=== PATIENT | male | born 1990 | race African-American/Black ===

== ENCOUNTER 2016-06-03 10:40 | Outpatient (CLI) | payer OTHER | END 2016-06-03 10:41 | disposition home or self-care (01) | DX: G47.33 Obstructive sleep apnea (adult) (pediatric) (principal) ==

== ENCOUNTER 2016-06-13 14:53 | Outpatient (CLI) | payer OTHER | END 2016-06-13 14:54 | disposition home or self-care (01) | DX: M51.26 Other intervertebral disc displacement, lumbar region (principal); M51.27 Other intervertebral disc displacement, lumbosacral region ==

== ENCOUNTER 2016-07-07 19:21 | Outpatient (CLI) | payer OTHER | END 2016-07-07 19:22 | disposition home or self-care (01) | DX: G47.9 Sleep disorder, unspecified (principal) ==

== ENCOUNTER 2016-07-18 10:52 | Outpatient (CLI) | payer OTHER | END 2016-07-18 10:53 | disposition home or self-care (01) | DX: R06.83 Snoring (principal); G47.10 Hypersomnia, unspecified ==

== ENCOUNTER 2017-09-10 12:53 | Outpatient (CLI) | payer OTHER | END 2017-09-10 12:54 | disposition home or self-care (01) | LOC: DI 12:53 | PROVIDERS: ATTEND General Practice | DX: I51.7 Cardiomegaly (principal) | CPT/HCPCS: 93306 ==

== ENCOUNTER 2017-10-13 15:39 | Outpatient (CLI) | payer OTHER | END 2017-10-13 15:40 | disposition home or self-care (01) | LOC: SC 15:39 | PROVIDERS: ATTEND Nurse Practitioner Family | DX: G47.10 Hypersomnia, unspecified (principal); R06.83 Snoring; E66.9 Obesity, unspecified; Z68.35 Body mass index [BMI] 35.0-35.9, adult; R20.0 Anesthesia of skin | CPT/HCPCS: 99212; 99214 ==

== ENCOUNTER 2017-12-31 20:09 | Outpatient (CLI) | payer OTHER | END 2017-12-31 20:10 | disposition home or self-care (01) | LOC: SC 20:09 | PROVIDERS: ATTEND Internal Medicine Pulmonary Disease | DX: G47.33 Obstructive sleep apnea (adult) (pediatric) (principal); G47.61 Periodic limb movement disorder | CPT/HCPCS: 95810 ==

== ENCOUNTER 2018-02-10 09:18 | Outpatient (CLI) | payer OTHER | END 2018-02-10 09:19 | disposition home or self-care (01) | LOC: SC 09:18 | PROVIDERS: ATTEND Nurse Practitioner Family | DX: G47.33 Obstructive sleep apnea (adult) (pediatric) (principal); G47.61 Periodic limb movement disorder | CPT/HCPCS: 99212; 99214 ==

== ENCOUNTER 2018-04-03 14:41 | Emergency (ER) | payer OTHER ==
[2018-04-03 15:08] VITALS: BP 146/79
[2018-04-03] MEDS: cephALEXin 250 MG CAPSULE PO STA (16:49)
--- NOTE | 2018-04-03 16:59 | XRAY Report ---
Reason: injury right index finger at PIP joint Procedure Date: 04/03/2018 Accession Number: [id number] / [id number] Procedure: XR - Finger(s) RT CPT Code: FULL RESULT: EXAM: RIGHT SECOND DIGIT RADIOGRAPHY EXAM DATE: 04/03/2018 04:41 PM. CLINICAL HISTORY: Injury right index finger at PIP joint. COMPARISON: None. TECHNIQUE: 3 views. FINDINGS: Bones: Normal. No fracture or bone lesion. Joints: Normal. No subluxations. Soft Tissues: There is soft tissue swelling at the dorsal PIP joint. IMPRESSION: Soft tissue swelling without fracture or subluxation. RADIA
--- NOTE | 2018-04-03 17:04 | ED Physician Documentation ---
PD HPI UPPER EXT INJURY - Stated complaint Stated Complaint: R POINTER FINGER INJ - Chief complaint Chief Complaint: Wound - History obtained from History obtained from: Patient - History of Present Illness Location: Right, Finger (index) Where injury occurred: Home Timing - onset: How many days ago (5) Worsened by: Moving, Palpating Associated symptoms: Swelling. No: Weakness, Numbness Similar symptoms before: Has not had sx before - Additonal information Additional information: The patient is a 27-year-old male who banged the knuckle on his right index finger 5 days ago when changing spark plugs on his car and the wrench slipped. He has noticed increased swelling at the wound area since that time, and it is become more painful. He is concerned about the possibility of infection. He is right-hand dominant. In a second, unrelated complaint, he complains of sore throat that started today, along with a low-grade fever. He denies headache, cough, or shortness of breath. Review of Systems Constitutional: reports: Fever (low grade) Nose: denies: Congestion Throat: reports: Sore throat Cardiac: denies: Chest pain / pressure Respiratory: denies: Dyspnea, Cough GI: denies: Abdominal Pain, Nausea, Vomiting Skin: denies: Rash Musculoskeletal: reports: Extremity pain (Index finger right hand.). denies: Neck pain Neurologic: denies: Focal weakness, Numbness, Headache PD PAST MEDICAL HISTORY - Past Medical History Endocrine/Autoimmune: None - Present Medications Home Medications: Ambulatory Orders Medication Instructions Recorded Confirmed cephALEXin [Cephalexin] 500 mg PO TID #20 tablet 04/03/18 - Allergies Allergies/Adverse Reactions: Allergies Allergy/AdvReac Type Severity Reaction Status Date / Time No Known Drug Allergies Allergy Verified 04/03/18 15:07 - Social History Does the pt smoke?: No PD ED PE NORMAL - Vitals Vital signs reviewed: Yes (Borderline hypertension; low grade fever) - General General: Alert and oriented X 3, Well developed/nourished - HEENT HEENT: Atraumatic, Other (Oropharynx is mildly erythematous, without exudates.) - Neck Neck: Supple, no meningeal sign, No adenopathy - Cardiac Cardiac: RRR - Respiratory Respiratory: No respiratory distress, Clear bilaterally - Derm Derm: No rash - Extremities Extremities: Other (There is an abrasion over the extensor aspect of the PIP joint on the right index finger swelling and tenderness to palpation. There is no lymphangitic streaking and no tenderness to palpation along the extensor tendon. Distal neurovascular is intact.) - Neuro Neuro: Alert and oriented X 3, No motor deficit, No sensory deficit Results - Vitals Vitals: Vital Signs - 24 hr 04/03/18 15:06 Temperature 38 C H Heart Rate 90 Respiratory 16 Rate Blood Pressure 146/79 H O2 Saturation 100 Oxygen O2 Source Room air - Labs Labs: Laboratory Tests 04/03/18 15:10 Group A Strep Rapid Negative - Rads (name of study) Right index finger Radiology: Prelim report reviewed, EMP read contemporaneously, See rad report (Soft tissue swelling at the dorsal PIP joint, without fracture or subluxation.) PD MEDICAL DECISION MAKING - ED course Complexity details: reviewed results, re-evaluated patient, considered differential, d/w patient ED course: The patient's presentation is most consistent with superficial cellulitis of the right index finger following a wound with abrasion. X-ray reveals no evidence of fracture or foreign body. His upper respiratory symptoms are most consistent with viral upper respiratory infection. Strep screen of his throat is negative, and influenza swab of his nasal pharynx is negative. Treatment in the emergency department included administration of cephalexin 500 mg orally. He is being discharged with prescription for cephalexin. I discussed with him the expected course of illness, antibiotic treatment and outpatient follow-up, as well as potentially worrisome signs or symptoms that should prompt reevaluation in the emergency department. Departure - Departure Disposition: 01 Home, Self Care Clinical Impression: Wound infection, Viral URI Finger injury Qualifiers: Encounter type: initial encounter Laterality: right Qualified Code(s): S69.91XA - Unspecified injury of right wrist, hand and finger(s), initial encounter Condition: Stable Instructions: ED Infec Skin Cellulitis Follow-Up: [facility] [Provider Group] Prescriptions: cephALEXin [Cephalexin] 500 mg PO TID #20 tablet Comments: Keep your right hand elevated as much the time as possible. Take cephalexin 3 times daily as prescribed. You can use ibuprofen, up to 800 mg 3 times daily for its anti-inflammatory effect. Let pain be your guide to activity level. Follow-up with your primary physician within 1-2 weeks. Call to schedule appointment. Return to the emergency department if increasing redness, swelling, pain, or otherwise worsening symptoms. Discharge Date/Time: 04/03/18 17:24
== END 2018-04-03 17:24 | disposition home or self-care (01) ==
LOC: ED 14:41
DX: S60.410A Abrasion of right index finger, initial encounter (principal); J06.9 Acute upper respiratory infection, unspecified; W22.8XXA Striking against or struck by other objects, initial encounter; Y93.89 Activity, other specified; Y92.009 Unspecified place in unspecified non-institutional (private) residence as the place of occurrence of the external cause
CPT/HCPCS: 73140; 87070; 87430; 99283; A9270

== ENCOUNTER 2018-06-24 11:11 | Outpatient (CLI) | payer OTHER | END 2018-06-24 11:12 | disposition home or self-care (01) | LOC: SC 11:11 | PROVIDERS: ATTEND Nurse Practitioner Family | DX: G47.33 Obstructive sleep apnea (adult) (pediatric) (principal) | CPT/HCPCS: 99212; 99214 ==

== ENCOUNTER 2018-07-18 08:48 | Outpatient (CLI) | payer OTHER ==
[2018-07-18] MEDS ORDERED: GADOBUTROL 7.5 MMOL/7.5 ML VIAL ONE (09:56)
[2018-07-18] MEDS ORDERED: GADOBUTROL 7.5 MMOL/7.5 ML VIAL IVP ONE (10:14)
--- NOTE | 2018-07-20 04:50 | MRI Report ---
Reason: OTHER INTERVERTEBRAL DISC DEGENERATION, LUMBAR REG Procedure Date: 07/18/2018 Accession Number: [id number] / [id number] Procedure: MRI - Lumbar Spine W/WO CPT Code: FULL RESULT: EXAM: MRI LUMBAR SPINE WITHOUT AND WITH CONTRAST EXAM DATE: 07/18/2018 10:22 AM. CLINICAL HISTORY: Low back pain, bilateral leg pain. COMPARISONS: LUMBAR SPINE W/O 06/13/2016 3:00 PM. TECHNIQUE: Multiplanar, multisequence T1-weighted and fluid-sensitive sequences of the lumbar spine from T12 to S1 before and after administration of intravenous contrast. Other: None. IV contrast: 13 mL of Gadavist. FINDINGS: Neurologic Structures: The conus terminates at L1. The conus medullaris and cauda equina are unremarkable. Alignment: There is no spondylolisthesis. Bone Marrow: Five [id number] lumbar vertebral bodies are assumed. No gross fractures or bone lesions. No bone marrow replacement or abnormal enhancement. Disk Levels/Facets: T12-L1: Unremarkable. L1-L2: Unremarkable. L2-L3: Unremarkable. L3-L4: Unremarkable. L4-L5: A central disk bulge and herniation have partially retracted compared to the prior exam. Spinal canal stenosis appears decreased. There is mild left foraminal narrowing due to a persistent foraminal protrusion. The right foramen is patent. L5-S1: A right paracentral protrusion and annular fissure have also retracted. It no longer abuts the descending right S1 nerve root. Disk height loss results in mild bilateral foraminal narrowing. Spinal Canal: No enhancing masses within the spinal canal. No epidural abscess. Musculature: Normal. No edema, abnormal enhancement, or fatty atrophy. Other: The visualized retroperitoneum is unremarkable. IMPRESSION: 1. Normal conus medullaris and cauda equina. 2. No abnormal enhancement to suggest lumbar spinal infection or tumor. 3. Interval retraction of the protrusions at L4-L5 and L5-S1 compared to the lumbar spine MRI from 06/13/2016. 4. No new or worsening disk bulge or herniation. 5. No worsening spinal canal or foraminal stenosis is seen. Comment: The following findings are so common in adults without low back pain that while we report their presence, they must be interpreted with caution and in the context of the clinical situation. (Reference Monroek et al, Spine 2001) Prevalence of findings in patients without low back pain: Disk degeneration (any evidence): 92% Disk desiccation/T2 signal loss: 83% Disk height loss: 56% Disk bulge: 64% Disk protrusion: 32% Annular tear/high intensity zone: 38% RADIA
== END 2018-07-18 08:49 | disposition home or self-care (01) ==
LOC: DI 08:48
PROVIDERS: ATTEND Family Medicine
DX: M51.37 Other intervertebral disc degeneration, lumbosacral region (principal); M51.26 Other intervertebral disc displacement, lumbar region; M51.36 Other intervertebral disc degeneration, lumbar region; M48.061 Spinal stenosis, lumbar region without neurogenic claudication; M48.07 Spinal stenosis, lumbosacral region; M51.27 Other intervertebral disc displacement, lumbosacral region
CPT/HCPCS: 72158

== ENCOUNTER 2018-07-18 22:05 | Emergency (ER) | payer OTHER ==
[2018-07-18 22:12] VITALS: BP 145/68
[2018-07-18] MEDS ORDERED: CHERRY SYRUP 10 ML UDC PO ONE (22:33)
[2018-07-18] MEDS ORDERED: DEXAMETHASONE 10 MG/ML VIAL PO STA (22:33)
--- NOTE | 2018-07-18 22:41 | ED Physician Documentation ---
PD HPI HEENT - Stated complaint Stated Complaint: SORE THROAT - Chief complaint Chief Complaint: Heent - History obtained from History obtained from: Patient, Family - History of Present Illness Timing - onset: How many days ago (4) Timing - duration: Days (4) Timing - details: Gradual onset, Still present Location: Right ear, Left ear, Throat Improves: Medication Worsens: Swalllowing Associated symptoms: Fever, Congestion, Rhinorrhea, Swollen nodes, Headache, Cough Similar symptoms before: Diagnosis (strep) Recently seen: Not recently seen Review of Systems Constitutional: denies: Fever Eyes: denies: Decreased vision Ears: reports: Loss of hearing, Ear pain Nose: reports: Rhinorrhea / runny nose, Congestion Throat: reports: Sore throat Cardiac: denies: Chest pain / pressure, Palpitations Respiratory: reports: Cough. denies: Dyspnea GI: denies: Vomiting PD PAST MEDICAL HISTORY - Past Medical History Endocrine/Autoimmune: None - Present Medications Home Medications: Ambulatory Orders Medication Instructions Recorded Confirmed Amox/Clav 875/125 [Augmentin] 1 each PO Q12H #20 tablet 07/19/18 - Allergies Allergies/Adverse Reactions: Allergies Allergy/AdvReac Type Severity Reaction Status Date / Time No Known Drug Allergies Allergy Verified 07/18/18 22:11 - Social History Does the pt smoke?: No Smoking Status: Never smoker PD ED PE NORMAL - Vitals Vital signs reviewed: Yes (hypertensive ) - General General: Alert and oriented X 3, No acute distress, Well developed/nourished - HEENT HEENT: Atraumatic, PERRL, EOMI, Other (both TM's are occluded with cerumen and after this is removed there is obvious inflamation to both TM's with distortion of the landmarks. The pharynx is with swelling and erythema ) - Neck Neck: Supple, no meningeal sign, No bony TTP - Cardiac Cardiac: RRR, No murmur - Respiratory Respiratory: No respiratory distress, Clear bilaterally - Abdomen Abdomen: Soft, Non tender - Back Back: No CVA TTP, No spinal TTP - Derm Derm: Normal color, Warm and dry, No rash - Extremities Extremities: No deformity, No edema - Neuro Neuro: Alert and oriented X 3, underwriter solicitation director 2-12 intact, No motor deficit, No sensory deficit, Normal speech Eye Opening: Spontaneous Motor: Obeys Commands Verbal: Oriented GCS Score: 15 - Psych Psych: Normal mood, Normal affect Results - Vitals Vitals: Vital Signs - 24 hr 07/18/18 22:08 Temperature 37.2 C Heart Rate 98 Respiratory 18 Rate Blood Pressure 145/68 H O2 Saturation 97 Oxygen O2 Source Room air - Labs Labs: Laboratory Tests 07/18/18 22:19 Group A Strep Rapid Negative Procedures - General procedure General procedure: Cerumen impaction bilaterally: The ears are both instilled with hydrogen peroxide and this is allowed to percolate for 35 minutes and following that the ears are irrigated with hydrogen peroxide to clear. There are large casts of the canals exuded bilaterally. At the conclusion of the procedure the patient has improved hearing and he does have some temporary vertigo. PD MEDICAL DECISION MAKING - ED course Complexity details: reviewed results, re-evaluated patient, considered differential, d/w patient, d/w family ED course: 28-year-old male with a cough and congestion has been bilateral otitis on examination he is administered dexamethasone 10 mg orally and Augmentin 875 mg p.o. He did have bilateral cerumen impaction and this was cleared by irrigation with hydrogen peroxide. Departure - Departure Disposition: 01 Home, Self Care Clinical Impression: Otitis media Qualifiers: Otitis media type: suppurative Chronicity: acute Laterality: bilateral Recurrence: non-recurrent Spontaneous tympanic membrane rupture: without spontaneous rupture Qualified Code(s): H66.003 - Acute suppurative otitis media without spontaneous rupture of ear drum, bilateral Instructions: ED Otitis Media Acute Adult Follow-Up: LORNA PATE MD [Primary Care Provider] - Prescriptions: Amox/Clav 875/125 [Augmentin] 1 each PO Q12H #20 tablet Forms: Activity restrictions
[2018-07-19] MEDS ORDERED: AMOX/CLAV 875 MG/125 MG TABLET PO STA (00:11)
== END 2018-07-19 00:29 | disposition home or self-care (01) ==
LOC: ED 22:05
DX: H66.003 Acute suppurative otitis media without spontaneous rupture of ear drum, bilateral (principal); M51.37 Other intervertebral disc degeneration, lumbosacral region; M51.26 Other intervertebral disc displacement, lumbar region; M51.36 Other intervertebral disc degeneration, lumbar region; M51.27 Other intervertebral disc displacement, lumbosacral region; M48.061 Spinal stenosis, lumbar region without neurogenic claudication; M48.07 Spinal stenosis, lumbosacral region
CPT/HCPCS: 69209; 72158; 87070; 87430; 99283; A9270; A9585

== ENCOUNTER 2018-07-20 15:28 | Emergency (ER) | payer OTHER ==
[2018-07-20 15:43] VITALS: BP 135/73
--- NOTE | 2018-07-20 15:51 | ED Physician Documentation ---
History of Present Illness - Stated complaint Stated Complaint: FEVER - Chief complaint Chief Complaint: Fever - History obtained from History obtained from: Patient - History of Present Illness Timing: Other (He has been sick for 4 days with ear pain and sore throat And was seen here on Friday, 2 days ago and diagnosed with otitis media and has been on amoxicillin. Now with high fevers and body aches for the last 36 hours.) Review of Systems Constitutional: reports: Fever, Chills, Myalgias, Fatigue Nose: reports: Rhinorrhea / runny nose Throat: reports: Sore throat Respiratory: reports: Cough. denies: Dyspnea PD PAST MEDICAL HISTORY - Past Medical History Endocrine/Autoimmune: None - Present Medications Home Medications: Ambulatory Orders Medication Instructions Recorded Confirmed Amox/Clav 875/125 [Augmentin] 1 each PO Q12H #20 tablet 07/19/18 07/20/18 - Allergies Allergies/Adverse Reactions: Allergies Allergy/AdvReac Type Severity Reaction Status Date / Time No Known Drug Allergies Allergy Verified 07/20/18 15:43 - Social History Does the pt smoke?: No Smoking Status: Never smoker PD ED PE NORMAL - Vitals Vital signs reviewed: Yes - General General: Alert and oriented X 3, No acute distress - HEENT HEENT: Ears normal (TMS look fine) - Neck Neck: Supple, no meningeal sign, No bony TTP - Cardiac Cardiac: RRR, No murmur - Respiratory Respiratory: No respiratory distress, Clear bilaterally - Abdomen Abdomen: Non tender - Derm Derm: No rash - Neuro Neuro: Alert and oriented X 3, Normal speech Results - Vitals Vitals: Vital Signs - 24 hr 07/20/18 15:40 Temperature 38.9 C H Heart Rate 88 Respiratory 20 Rate Blood Pressure 135/73 H O2 Saturation 99 Oxygen O2 Source Room air - Labs Labs: Laboratory Tests 07/20/18 15:38 Influenza A (Rapid) Negative Influenza B (Rapid) Negative - Rads (name of study) 2v chest Radiology: EMP read contemporaneously (NAD) PD MEDICAL DECISION MAKING - ED course ED course: 28-year-old gentleman with fever and what sounds like a flulike illness with negative flu swab. The otitis media that he was seen for 2 days ago his cleared up and his TMs are normal. He does have a prominent cough and a chest x-ray was checked and clear. Conservative care was advised. Departure - Departure Disposition: Home, Self Care Clinical Impression: Viral URI Condition: Good Record reviewed to determine appropriate education?: Yes Instructions: ED Viral Syndrome Comments: Continue Tylenol and ibuprofen as needed for pain and fever. Drink plenty of fluids. Follow-up with your doctor in 3 days if not better, return for new or worsening symptoms. Forms: Activity restrictions Discharge Date/Time: 07/20/18 17:13
[2018-07-20] MEDS ORDERED: CHERRY SYRUP 10 ML UDC PO ONE (17:13)
[2018-07-20] MEDS ORDERED: DEXAMETHASONE 10 MG/ML VIAL PO STA (17:13)
--- NOTE | 2018-07-20 17:15 | XRAY Report ---
Reason: cough fever Procedure Date: 07/20/2018 Accession Number: [id number] / [id number] Procedure: XR - Chest 2 View X-Ray CPT Code: 48542 FULL RESULT: EXAM: CHEST RADIOGRAPHY EXAM DATE: 07/20/2018 04:58 PM. CLINICAL HISTORY: Cough and fever. COMPARISON: None. TECHNIQUE: 2 views. FINDINGS: Lungs/Pleura: No focal opacities evident. No pleural effusion. No pneumothorax. Lung volumes are mildly diminished. Mediastinum: Heart and mediastinal contours are unremarkable. Other: None. IMPRESSION: No acute consolidation evident. Low lung volumes noted. RADIA
== END 2018-07-20 17:13 | disposition home or self-care (01) ==
LOC: ED 15:28
DX: J06.9 Acute upper respiratory infection, unspecified (principal); B97.89 Other viral agents as the cause of diseases classified elsewhere
CPT/HCPCS: 71046; 87275; 87276; 99281; 99282; A9270

== ENCOUNTER 2018-07-29 11:03 | Outpatient (CLI) | payer OTHER | END 2018-07-29 11:04 | disposition home or self-care (01) | LOC: SC 11:03 | PROVIDERS: ATTEND Nurse Practitioner Family | DX: G47.33 Obstructive sleep apnea (adult) (pediatric) (principal) | CPT/HCPCS: 99212; 99214 ==

== ENCOUNTER 2018-10-20 13:56 | Outpatient (CLI) | payer OTHER | END 2018-10-20 13:57 | disposition home or self-care (01) | LOC: SC 13:56 | PROVIDERS: ATTEND Nurse Practitioner Family | DX: G47.33 Obstructive sleep apnea (adult) (pediatric) (principal) | CPT/HCPCS: 99212; 99214 ==

== ENCOUNTER 2019-05-25 13:37 | Outpatient (CLI) | payer OTHER ==
[2019-05-25 14:36] VITALS: BP 140/90
--- NOTE | 2019-05-25 14:36 | SLEEP CARE CONSULTATION ---
Information from patient questionnaire entered by Razia Benavidez. I have reviewed and concur with the information entered by Razia Benavidez. This document represents the service I personally performed and the decisions made by me, Radha Cole, RN, MSN, FLOORING SALESPERSON. History of Present Illness Previous diagnosis: Moderate, Obstructive Sleep Apnea-Hypopnea Syndrome AHI: 17.9 Reason for follow up: six month Equipment type: CPAP Equipment obtained from: [employer] Mask style: Full face (Dreamwear) Mask brand: Respironics Backup mask available: Yes Last cushion change: 2 weeks ago Prior sleep studies: Yes HPI additional information: He has been struggling to use CPAP since advancement to to [facility]. His referral and then he had to delay follow up with new position due to new duties. He has also had oral dryness affecting CPAP use. CPAP Compliance Data - Data Reviewed with Patient Average duration of nightly device use: 3h 52m Compliance rate %: 22.8 Current pressure setting (cmH2O): 9-15 Humidity settin Heated hose settin Average residual AHI: 0.6 Average large leak: 8m 9s Subjective Missed days of use due to: reports: other (schedule ) Patient concerns: reports: dry mouth, nose, throat (causing him to pull off mask at times ). denies: aerophagia, mask discomfort, air blowing in eyes, mask leak noise, condensation in mask/hose, nasal congestion, epistaxis Observed to snore while using device: No Current pressure setting perceived as: comfortable On therapy, patient: reports: sleeping better. denies: drowsiness while driving Initial [place] Sleepiness Scale score: 19 Current [place] Sleepiness Scale score: 16 Allergies and Home Medications Known drug allergies: No Home medication list reviewed: Yes Allergy and home medication list: Medication Name (generic/name brand) Strength & Dosage Amlodipine Besylate 10mg tab one daily Hydrochlorothiazide 12.5mg tab one daily Review of Systems Review of systems same as previous: Yes Physical Exam Blood Pressure: 140/90 (has monitor but not monitoring BP) Cuff size: long Heart Rate: 76 O2 Saturation: 98 Height: 6 ft 3 in Impression and Plan 1. Obstructive Sleep Apnea-Hypopnea Syndrome, moderate, with poor treatment compliance and good apnea control. On CPAP therapy, the patient has better sleep quality and is more rested overall. For oral dryness, he is advised to raise humidity to 4 and keep heated hose at 2. Printed instructions given and rationale for further adjustment discussed. Cleaning questions answered. Reference sheet given. Patient has gained weight. Currently patients BMI is 34.9 obesity class. Obesity increases the risk of apnea, CPAP pressure requirements and overall health risks especially cardiovascular and diabetes. Thus patient is advised to lose weight. Weight loss can be done with reducing portion size, refined foods and balancing content with vegetables, fruit and protein. A diet consultation can be helpful in achieving optimal weight loss goals. The BMI chart was reviewed. The patient would like to reduce to 230 pounds bringing their BMI down to 29. Patient encouraged to discuss weight loss goals with their PCP and consider a referral to a gambling box person. His weight loss will also benefit his blood pressure. The patient's CPAP pressure was changed to autoCPAP at 8-12 cmH2O to accommodate for future weight loss. Symptoms to report for additional pressure adjustment discussed. Patient's apnea severity and rationale for treatment to reduce apnea, improve sleep quality and reduce cardiovascular and cerebrovascular events was reviewed. I also reviewed the benefit of consistent device use of CPAP for hypertension. Since his apnea is more severe supine, if unable to use CPAP he is advised to avoid supine sleep by using pillow positioning. 2. Elevated blood pressure - advised to monitor at home and follow up with PCP. Patient agreed with plan. BP monitoring card given. Health risks of untreated blood pressure discussed and urgent guidelines given. * Change CPAP pressure to 8-12 cmH2O * Adjust humidity / heated hose * Use CPAP with all sleep. * Notify me if snoring with mask or feeling that the pressure is too much or too little * Attempt to lose weight * Follow up with PCP re blood pressure management and diet consultation. * Call this office if any problems using CPAP * Return for follow up in 1-2 months , or sooner if concerns arise Time Spent with Patient (minutes): 30 I spent 100% of this visit face to face with the patient with greater than 50% of this was spent time counseling the patient and coordination of care.
== END 2019-05-25 13:38 | disposition home or self-care (01) ==
LOC: SC 13:37
PROVIDERS: ATTEND Nurse Practitioner Family
DX: G47.33 Obstructive sleep apnea (adult) (pediatric) (principal); R03.0 Elevated blood-pressure reading, without diagnosis of hypertension; E66.9 Obesity, unspecified; Z68.34 Body mass index [BMI] 34.0-34.9, adult
CPT/HCPCS: 99212; 99214